=== PATIENT | male | born 1940 | race Caucasian/White ===

== ENCOUNTER 2017-06-21 19:18 | Inpatient (IN) | payer OTHER, MEDICARE ==
[~2017-06-21] VITALS: Ht 172.7 cm; Wt 70.5 kg
[~2017-06-21 19:18] MED LIST: ANT12.5 PO; OMEPRAZOLE D/R20 M1 PO; ZESTRIL20 MG PO
[2017-06-21 19:22] VITALS: Ht 172.7 cm; Wt 70.5 kg
[2017-06-21 21:22] LABS: BASOPHIL % 0.4 % (0-2); PLATELET COUNT 159 x10^3mcL (130-400); RED CELL DISTRIBUTION WIDTH 13.6 % (11.5-14.5)
[2017-06-21 21:26] LABS: CALCIUM 8.8 mg/dL (8.5-10.1); CARBON DIOXIDE 28.4 mmol/L (21-32); CHLORIDE SERUM 105 mmol/L (98-107); CREATININE SERUM 1.1 mg/dL (0.7-1.3); GLUCOSE SERUM 94 mg/dL (74-106); POTASSIUM SERUM 3.7 mmol/L (3.5-5.1); SODIUM SERUM 142 mmol/L (136-145)
[2017-06-21 21:30] LABS: ALBUMIN 3.5 g/dL (3.4-5.0); ALKALINE PHOSPHATASE 67 U/L (46-116); ALT/SGPT 40 U/L (16-63); AST/SGOT 27 U/L (15-37); BILIRUBIN TOTAL 0.3 mg/dL (0.20-1.00); TOTAL PROTEIN, SERUM 6.9 g/dL (6.4-8.2)
[2017-06-21] MEDS ORDERED: LISINOPRIL2.5 MG PO (23:36)
[2017-06-21 23:38] VITALS: BP 121/70
[2017-06-22 00:29] VITALS: BP 121/70
[2017-06-22 01:06] LABS: FREE T4 0.88 ng/dL (0.76-1.46); FREE THYROXINE INDEX 2.2 ug/dL (1.4-4.5); T4(THYROXINE) 6.2 ug/dL (4.7-13.3)
[2017-06-22 01:11] LABS: T3 TOTAL 0.92 ng/mL
[2017-06-22 01:13] LABS: CHOLESTEROL/HDL RATIO 5.1; MAGNESIUM 2.1 mg/dL (1.8-2.4); PHOSPHOROUS 2.2 mg/dL (2.5-4.9)
[2017-06-22 06:02] VITALS: BP 116/72
[2017-06-22 07:00] LABS: BASOPHIL % 0.5 % (0-2); PLATELET COUNT 154 x10^3mcL (130-400); RED CELL DISTRIBUTION WIDTH 13.5 % (11.5-14.5)
[2017-06-22 08:12] LABS: CALCIUM 8.3 mg/dL (8.5-10.1); CARBON DIOXIDE 27.4 mmol/L (21-32); CHLORIDE SERUM 106 mmol/L (98-107); CREATININE SERUM 1.1 mg/dL (0.7-1.3); GLUCOSE SERUM 94 mg/dL (74-106); MAGNESIUM 1.9 mg/dL (1.8-2.4); PHOSPHOROUS 3.8 mg/dL (2.5-4.9); POTASSIUM SERUM 4.2 mmol/L (3.5-5.1); SODIUM SERUM 142 mmol/L (136-145)
[2017-06-22 09:00] LABS: microscopic required? NO
[2017-06-22 09:18] VITALS: BP 131/79
[2017-06-22 10:01] LABS: urine erythrocyte NEGATIVE (NEGATIVE)
[2017-06-22 13:19] VITALS: BP 135/81
[2017-06-22 17:04] LABS: AMPHETAMINE QUAL UR NONE DETECTED (NEG <=1000)
[2017-06-22 17:19] VITALS: BP 122/69
[2017-06-22 19:50] VITALS: BP 123/76
== END 2017-06-22 21:35 | disposition home or self-care (01) | DRG 205 ==
LOC: ED 19:18 → DU 22:50
PROVIDERS: Emergency Medicine; Family Medicine
DX: M94.0 Chondrocostal junction syndrome [Tietze] (principal); N17.0 Acute kidney failure with tubular necrosis; I10 Essential (primary) hypertension; Z85.46 Personal history of malignant neoplasm of prostate; K21.9 Gastro-esophageal reflux disease without esophagitis; R91.1 Solitary pulmonary nodule; K82.8 Other specified diseases of gallbladder; E83.51 Hypocalcemia; E83.39 Other disorders of phosphorus metabolism; E78.5 Hyperlipidemia, unspecified
CPT/HCPCS: 83880; 84439; 85378; J7030; Q9967

== ENCOUNTER 2020-05-01 13:39 | Emergency (ER) | payer OTHER, MEDICARE ==
[~2020-05-01] VITALS: Ht 172.7 cm; Wt 70.3 kg
[~2020-05-01 13:39] MED LIST changes: +LISINOPRIL2.5 MG PO
[2020-05-01 13:43] VITALS: BP 151/87; Ht 172.7 cm; Wt 70.3 kg
== END 2020-05-01 16:46 | disposition home or self-care (01) ==
LOC: ED 13:39
DX: S46.002A Unspecified injury of muscle(s) and tendon(s) of the rotator cuff of left shoulder, initial encounter (principal); S00.31XA Abrasion of nose, initial encounter; R19.7 Diarrhea, unspecified; R42 Dizziness and giddiness; I10 Essential (primary) hypertension; K21.9 Gastro-esophageal reflux disease without esophagitis; Z98.890 Other specified postprocedural states; W18.11XA Fall from or off toilet without subsequent striking against object, initial encounter; Y93.89 Activity, other specified; Y92.89 Other specified places as the place of occurrence of the external cause; Y99.8 Other external cause status